=== PATIENT | male | born 1975 | race Caucasian/White ===

== ENCOUNTER 2016-09-20 06:58 | Day surgery (SDC) | payer BC ==
[~2016-09-20 06:58] MED LIST: Lactated Ringers 1,000 ML IV SCH
[2016-09-20] MEDS ORDERED: Propofol 200 MG/20 ML SDV ONE (07:15)
[2016-09-20] MEDS ORDERED: fentaNYL 100 MCG/2 ML SDV ONE (07:15)
[2016-09-20] MEDS ORDERED: Midazolam 1 MG/ML 2 ML SDV ONE (07:15)
[2016-09-20] MEDS ORDERED: Ketorolac 30 MG/ML SDV ONE (07:16)
[2016-09-20] MEDS ORDERED: diphenhydrAMINE 50 MG/ML SDV ONE (07:16)
[2016-09-20] MEDS ORDERED: Ondansetron 4 MG/2 ML SDV ONE (07:16)
[2016-09-20] MEDS ORDERED: Lidocaine 2% 5 ML SDV ONE (07:16)
[2016-09-20] MEDS ORDERED: ceFAZolin 1 GM Vial ONE (07:19)
[2016-09-20] MEDS ORDERED: Bupivacaine 0.25% 10 ML SDV ONE (07:25)
[2016-09-20] MEDS ORDERED: Bupivacaine 0.25%/EPINEPHrine 1:200,000 10 ML SDV ONE (07:25)
--- NOTE | 2016-09-20 07:43 | PCM.PREANE ---
Preanesthetic Assessment - Anesthesia/Transfusion/Family Hx Anesthesia History: Prior Anesthesia Without Reaction Family History of Anesthesia Reaction: No Transfusion History: No Prior Transfusion(s) Intubation History: Unknown - Review of Systems General: No Symptoms Pulmonary: Other (smoker) Cardiovascular: No Symptoms Gastrointestinal: No symptoms Neurological: Other (left elbow swelling and pain) Other: Reports: None - Physical Assessment O2 Sat by Pulse Oximetry: 98 Respiratory Rate: 16 Vital Signs: Last Vital Signs Temp 97.5 F 09/20/16 07:17 Pulse 78 09/20/16 07:17 Resp 16 09/20/16 07:17 BP 118/81 09/20/16 07:17 Pulse Ox 98 09/20/16 07:17 Height: 6 ft 2 in Weight: 220 lb ASA Class: 2 Mental Status: Alert & Oriented x3 Airway Class: Mallampati = 1 Dentition: Reports: Normal Dentition Thyro-Mental Finger Breadths: 3 Mouth Opening Finger Breadths: 3 (full bailey) ROM/Head Extension: Full Lungs: Clear to auscultation, Normal respiratory effort Cardiovascular: Regular Rate, Regular Rhythm, No Murmurs - Allergies Allergies/Adverse Reactions: Allergies Allergy/AdvReac Type Severity Reaction Status Date / Time morphine Allergy Itching Verified 07/04/16 09:06 oxycodone Allergy Lightheaded Verified 07/04/16 09:06 ness - Blood Blood Available: No Product(s) Available: None - Acknowledgements Anesthesia Type Planned: General Anesthesia (LMA vs OET) Pt an Appropriate Candidate for the Planned Anesthesia: Yes Alternatives and Risks of Anesthesia Discussed w Pt/Guardian: Yes Pt/Guardian Understands and Agrees with Anesthesia Plan: Yes PreAnesthesia Questionnaire HEENT History: Reports: None Cardiovascular History: Reports: Other (see below) Other Cardiovascular History: edema to lower extremities Gastrointestinal History: Reports: GERD Genitourinary History: Reports: None Musculoskeletal History: Reports: Back pain, chronic, Gout - Past Surgical History Head Surgeries/Procedures: Reports: None HEENT Surgical History: Reports: Myringotomy w tube(s), Tonsillectomy GI Surgical History: Reports: Cholecystectomy, Colonoscopy, EGD Other GI Surgeries/Procedures: I&D pilonidal cyst Male Surgical History: Reports: Vasectomy Other Neurological Surgeries/Procedures: 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6 Musculoskeletal Surgical History: Reports: Shoulder surgery, Other (see below) Other Musculoskeletal Surgeries/Procedures:: elbow surgery on 2016 - SUBSTANCE USE Smoking Status *Q: Current Every Day Smoker Tobacco Use Within Last Twelve Months: Cigarettes Second Hand Smoke Exposure: No Days Per Week of Alcohol Use: 1 Number of Drinks Per Day: 2 Total Drinks Per Week: 2 Recreational Drug Use History: No - HOME MEDS Home Medications: Home Meds RABEprazole [Aciphex] 1 tab PO BID PRN 05/02/14 [History] - CURRENT (IN HOUSE) MEDS Current Meds: Current Medications Hydrocodone Bitart/Acetaminophen ([place] 325-5 Mg) 1 - 2 tab PO Q4H PRN PRN Reason: Pain Lactated Ringer's (Ringers, Lactated) 1,000 mls @ 100 mls/hr IV ASDIRECTED [facility] Last Admin: 09/20/16 07:19 Dose: 100 mls/hr Cefazolin Sodium/Dextrose 2 gm (/ Premix) 50 mls @ 100 mls/hr IV ONCALL DAGMAR Discontinued Medications Bupivacaine HCl (Sensorcaine-Mpf 0.25%) Confirm Administered Dose 10 ml .ROUTE .STK-MED ONE Stop: 09/20/16 07:26 Bupivacaine HCl/Epinephrine Bitart (Marcaine 0.25%/Epinephrine 1:200,000) Confirm Administered Dose 10 ml .ROUTE .STK-MED ONE Stop: 09/20/16 07:26 Cefazolin Sodium (Ancef) Confirm Administered Dose 2 gm .ROUTE .STK-MED ONE Stop: 09/20/16 07:20 Diphenhydramine HCl (Benadryl) Confirm Administered Dose 50 mg .ROUTE .STK-MED ONE Stop: 09/20/16 07:17 Fentanyl (Sublimaze) Confirm Administered Dose 100 mcg .ROUTE .STK-MED ONE Stop: 09/20/16 07:16 Ketorolac Tromethamine (Toradol) Confirm Administered Dose 30 mg .ROUTE .STK- MED ONE Stop: 09/20/16 07:17 Lidocaine (Xylocaine-Mpf 2%) Confirm Administered Dose 5 ml .ROUTE .STK-MED ONE Stop: 09/20/16 07:17 Midazolam HCl (Versed 1 Mg/Ml) Confirm Administered Dose 2 mg .ROUTE .STK-MED ONE Stop: 09/20/16 07:16 Ondansetron HCl (Zofran) Confirm Administered Dose 4 mg .ROUTE .STK-MED ONE Stop: 09/20/16 07:17 Propofol (Diprivan 20 Ml) Confirm Administered Dose 200 mg .ROUTE .STK-MED ONE Stop: 09/20/16 07:16 Preanesthetic Assessment - ANESTHESIA/TRANSFUSION/FAMILY HX Anesthesia/Transfusion History: No Prior Transfusion(s), Prior Anesthesia (javier , T+A, shoulder: no anesthesia issues noted) Family History of Anesthesia Reaction: No Other Intubation History Comment: no known problems - PHYSICAL ASSESSMENT O2 Sat by Pulse Oximetry: 98 RR: 16 Vital Signs: Last Vital Signs Temp 97.5 F 09/20/16 07:17 Pulse 78 09/20/16 07:17 Resp 16 09/20/16 07:17 BP 118/81 09/20/16 07:17 Pulse Ox 98 09/20/16 07:17 Height: 6 ft 2 in Weight: 220 lb - ALLERGIES Allergies/Adverse Reactions: Allergies Allergy/AdvReac Type Severity Reaction Status Date / Time morphine Allergy Itching Verified 07/04/16 09:06 oxycodone Allergy Lightheaded Verified 07/04/16 09:06 ness
[2016-09-20] MEDS ORDERED: ceFAZolin 2 GM in Premix Bag 1 BAG IV SCH (08:00)
[2016-09-20] MEDS ORDERED: fentaNYL 100 MCG/2 ML SDV IVPUSH PRN (08:21)
--- NOTE | 2016-09-20 08:58 | PCM.OPNOTE ---
- General Post-Op/Procedure Note Date of Surgery/Procedure: 09/20/16 Operative Procedure(s): Excision left olecranon bursa Post-Op Diagnosis: Left olecranon bursitis Anesthesia Technique: General LMA Primary Surgeon: Ashley Liz Production Floater: Alexis Blancas in mLs: 5 Condition: Good Free Text/Narrative:: tt=9 min #[id number]
[2016-09-20] MEDS ORDERED: Acetaminophen/HYDROcodone 325-5 MG Tab PO PRN (09:00)
--- NOTE | 2016-09-20 09:33 | PCM.POSTAN ---
POST ANESTHESIA ASSESSMENT - MENTAL STATUS Mental Status: oriented, somnolent Free Text/Narrative:: Easily aroused, but comfortable unstimulated. - VITAL SIGNS Pulse Rate: 83 SaO2: 99 Resp Rate: 12 Blood Pressure: 110/74 - RESPIRATORY Respiratory Status: respiratory rate WNL, airway patent, O2 saturation stable - CARDIOVASCULAR CV Status: pulse rate WNL, blood pressure stable - GASTROINTESTINAL GI Status: no symptoms - POST OP HYDRATION Hydration Status: adequate & stable - OBSERVATIONS Free Text/Narrative:: Discharge to floor for phase II.
--- NOTE | 2016-09-20 10:13 | OR ---
SURGEON: Ashley Liz MD DATE OF PROCEDURE: 09/20/2016 PREOPERATIVE DIAGNOSIS: Recurrent left olecranon bursitis. POSTOPERATIVE DIAGNOSIS: Recurrent left olecranon bursitis. PROCEDURE: Excision of left olecranon bursa. POULTRY HANGER: Alexis Blancas PA-C. ANESTHESIA: General. ESTIMATED BLOOD LOSS: 5 mL. TOURNIQUET TIME: 9 minutes. COMPLICATIONS: None. DVT PROPHYLAXIS: Not indicated. IMPLANTS USED: None. BRIEF HISTORY: Darren is a 41-year-old male, who developed a left olecranon bursitis which was nonresponsive to conservative treatment. He subsequently underwent excision of the left olecranon bursa. Some small calcifications were noted along the tip of the olecranon at that time which were also removed. Postoperatively, he has developed recurrent bogginess in the olecranon region. He has not had any evidence of septic olecranon bursitis. He continues to complain of pain and swelling in the elbow. Due to his lack of response to conservative treatment, I did recommend repeat surgery. The risks and goals of procedure were discussed with the patient and documented preoperatively. He agreed to proceed. DESCRIPTION OF PROCEDURE: The patient was properly identified and brought to the operating room. He was transferred from the OR cart and placed on the operating table in supine position. General anesthesia was administered. After adequate anesthesia was obtained, a well-padded tourniquet was applied to the left upper extremity. The left upper extremity was then prepped in standard fashion using ChloraPrep solution. It was then sterilely draped. A time-out was performed to ensure correct site and procedure. Preoperative antibiotics were given. The surgical site had been marked preoperatively. The tourniquet was inflated to 200 mmHg. An incision was made over the site of the previous incision. Serous fluid did drain from the bursa. The bursal tissue was then excised using a combination of electrocautery and rongeur. He had developed recurrent small calcifications over the tip of the olecranon which were also excised. An extensive bursectomy was performed. Care was taken not to extend medially to the location of the ulnar nerve. At the completion, the wound was copiously irrigated with saline solution. The tourniquet was deflated. Electrocautery was used to maintain hemostasis. The subcutaneous tissues were then closed with 3-0 Vicryl. The skin was closed with a running 3-0 nylon suture. 0.25% Marcaine with epinephrine was injected along the incision site to help with hemostasis and postoperative pain control. Xeroform gauze was then placed over the wound and a bulky dressing was applied. He was placed in a well-padded posterior splint. He was awakened from his anesthetic and transferred back to the operating room cart. He was brought to recovery room in stable condition. All needle and sponge counts were correct. HAILEY / DIVINA /[id number]
--- NOTE | 2016-09-20 10:35 | PCM48HPAN ---
Post Anesthesia Note - EVALUATION WITHIN 48HRS OF ANESTHETIC Vital Signs in Normal Range: Yes Patient Participated in Evaluation: Yes Respiratory Function Stable: Yes Airway Patent: Yes Cardiovascular Function Stable: Yes Hydration Status Stable: Yes Pain Control Satisfactory: Yes Nausea and Vomiting Control Satisfactory: Yes Mental Status Recovered: Yes - COMMENTS/OBSERVATIONS Free Text/Narrative:: Known as a deep sleeper, he is also sleepy here after the anesthetic. He is aware and will be going home soon.
[2016-09-20 10:59] VITALS: BP 122/75
== END 2016-09-20 11:00 | disposition home or self-care (01) ==
LOC: MW.SDS 06:58
PROVIDERS: ATTEND Orthopaedic Surgery
DX: M70.22 Olecranon bursitis, left elbow (principal); K21.9 Gastro-esophageal reflux disease without esophagitis; Z88.8 Allergy status to other drugs, medicaments and biological substances; Z90.49 Acquired absence of other specified parts of digestive tract; Z98.890 Other specified postprocedural states; F17.210 Nicotine dependence, cigarettes, uncomplicated; Z98.52 Vasectomy status; Z79.899 Other long term (current) drug therapy
CPT/HCPCS: 24105; A9270; J0690; J1200; J1885; J2250; J2405; J3010; J7120; 01710; 88304; J2704

== ENCOUNTER 2017-05-20 07:50 | Day surgery (SDC) | payer BC ==
[~2017-05-20 07:50] MED LIST changes: +Bupivacaine 25%/EPINEPHrine/PF 30 ML ONE; +Lidocaine 2% 5 ML SDV ONE; +Midazolam 1 MG/ML 2 ML SDV ONE; +Octyl 2-Cyanoacrylate 1 Tube ONE; +Propofol 200 MG/20 ML SDV ONE; +ceFAZolin 2 GM in Premix Bag 1 BAG IV ONE; +fentaNYL 100 MCG/2 ML SDV ONE
--- NOTE | 2017-05-20 08:57 | PCM.PREANE ---
Preanesthetic Assessment - Anesthesia/Transfusion/Family Hx Anesthesia History: Prior Anesthesia Without Reaction Family History of Anesthesia Reaction: No Transfusion History: No Prior Transfusion(s) Intubation History: Unknown - Review of Systems General: No Symptoms Pulmonary: No Symptoms Cardiovascular: No Symptoms Gastrointestinal: No Symptoms Neurological: No Symptoms Other: Reports: None - Physical Assessment NPO Status Date: 05/19/17 O2 Sat by Pulse Oximetry: 99 Respiratory Rate: 16 Vital Signs: Last Vital Signs Temp 36.5 C 05/20/17 08:15 Pulse 99 05/20/17 08:15 Resp 16 05/20/17 08:15 BP 109/67 05/20/17 08:15 Pulse Ox 99 05/20/17 08:15 ASA Class: 2 Mental Status: Alert & Oriented x3 Airway Class: Mallampati = 2 Dentition: Reports: Normal Dentition ROM/Head Extension: Full Lungs: Clear to Auscultation, Normal Respiratory Effort Cardiovascular: Regular Rate, Regular Rhythm - Allergies Allergies/Adverse Reactions: Allergies Allergy/AdvReac Type Severity Reaction Status Date / Time morphine Allergy Itching Verified 07/04/16 09:06 oxycodone Allergy Lightheaded Verified 07/04/16 09:06 ness - Anesthesia Plan Pre-Op Medication Ordered: None - Acknowledgements Anesthesia Type Planned: General Anesthesia, MAC Pt an Appropriate Candidate for the Planned Anesthesia: Yes Alternatives and Risks of Anesthesia Discussed w Pt/Guardian: Yes Pt/Guardian Understands and Agrees with Anesthesia Plan: Yes Additional Comments: pmh: gerd, gout, smoker PreAnesthesia Questionnaire HEENT History: Other HEENT History: wears glasses Cardiovascular History: Reports: Other (See Below) Other Cardiovascular History: edema to lower extremities Gastrointestinal History: Reports: GERD Genitourinary History: Reports: None Musculoskeletal History: Reports: Back Pain, Chronic, Gout Neurological History: Reports: None - Past Surgical History Head Surgeries/Procedures: Reports: None HEENT Surgical History: Reports: Myringotomy w Tube(s), Tonsillectomy GI Surgical History: Reports: Cholecystectomy, Colonoscopy, EGD Other GI Surgeries/Procedures: I&D pilonidal cyst Male Surgical History: Reports: Vasectomy Other Neurological Surgeries/Procedures: 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6 Musculoskeletal Surgical History: Reports: Shoulder Surgery, Other (See Below) Other Musculoskeletal Surgeries/Procedures:: elbow surgery on 2016 - SUBSTANCE USE Smoking Status *Q: Current Every Day Smoker Tobacco Use Within Last Twelve Months: Other (See Below) Second Hand Smoke Exposure: No Days Per Week of Alcohol Use: 1 Number of Drinks Per Day: 2 Total Drinks Per Week: 2 Recreational Drug Use History: No - HOME MEDS Home Medications: Home Meds RABEprazole [Aciphex] 1 tab PO BID PRN 05/02/14 [History] - CURRENT (IN HOUSE) MEDS Current Meds: Current Medications Lactated Ringer's (Ringers, Lactated) 1,000 mls @ 125 mls/hr IV ASDIRECTED DAGMAR Discontinued Medications Fentanyl (Sublimaze) Confirm Administered Dose 100 mcg .ROUTE .STK-MED ONE Stop: 05/20/17 07:23 Cefazolin Sodium/Dextrose 2 gm (/ Premix) 50 mls @ 100 mls/hr IV ONETIME ONE Stop: 05/20/17 05:29 Bupivacaine HCl/Epinephrine Bitart (Sensorc Mpf 0.25%-Epi 1:[id number]) Confirm Administered Dose 30 mls @ as directed .ROUTE .STK-MED ONE Stop: 05/20/17 07:44 Lidocaine (Xylocaine-Mpf 2%) Confirm Administered Dose 5 ml .ROUTE .STK-MED ONE Stop: 05/20/17 07:24 Midazolam HCl (Versed 1 Mg/Ml) Confirm Administered Dose 2 mg .ROUTE .STK-MED ONE Stop: 05/20/17 07:23 Octyl Cyanoacrylate (Dermabond Advance) Confirm Administered Dose 1 applic .ROUTE .STK-MED ONE Stop: 05/20/17 07:47 Propofol (Diprivan 20 Ml) Confirm Administered Dose 200 mg .ROUTE .STK-MED ONE Stop: 05/20/17 07:23
[2017-05-20] MEDS ORDERED: Acetaminophen/HYDROcodone 325-5 MG Tab PO ONE (09:34)
[2017-05-20] MEDS ORDERED: Midazolam 1 MG/ML 2 ML SDV ONE (09:43)
[2017-05-20] MEDS ORDERED: ceFAZolin 1 GM Vial ONE (09:46)
[2017-05-20] MEDS ORDERED: Lidocaine 1% with EPINEPHrine 1:100,000 20 ML MDV ONE (09:48)
[2017-05-20] MEDS ORDERED: Flumazenil 0.1 MG/ML 5 ML MDV ONE (10:09)
--- NOTE | 2017-05-20 10:29 | PCM.OPNOTE ---
- General Post-Op/Procedure Note Date of Surgery/Procedure: 05/20/17 Operative Procedure(s): head mass excisional bx Findings: found a whitish color, round object, like a anel, 4 mm diameter, excised w skin en bloc; [id number] Pre Op Diagnosis: head mass Post-Op Diagnosis: Same Anesthesia Technique: General Mask, Local Primary Surgeon: Dennis Naranjo Pathology: sent Complications: None Condition: Good
--- NOTE | 2017-05-20 11:15 | OR ---
SURGEON: Dennis Naranjo MD DATE OF PROCEDURE: 05/20/2017 PREOPERATIVE DIAGNOSIS: Head mass. POSTOPERATIVE DIAGNOSIS: Head mass. PROCEDURE PERFORMED: Excision and biopsy. COMPLICATIONS: None. FINDINGS: Like a foreign object, a whitish color, and solid like a anel 4 mm in diameter, incision 3.1 cm excised en bloc with skin on top and sent for pathology. PROCEDURE IN DETAIL: The patient was taken to the operating room, placed in the supine position, and mild general sedation was given, and a time-out was then called. The patient was identified, procedure identified, antibiotic given. Procedure then started. The patient was prepped and draped in the head area, which has been shaved, which was on top of the head. Using a skin scalpel, a fish-mouth incision was made, and exposed like a foreign object like a anel 4 mm in diameter and skin on top was excised and sent for pathology. skin incision 3.1cm. Good hemostasis was achieved by using electrocautery. The wound was closed with 3-0 Ethilon, running baseball stitches, and followed with bacitracin cream. The patient was then awakened and transported to recovery room in hemodynamically stable condition. The patient tolerated the procedure well. There were no intraoperative complications. Dr. Naranjo present for the whole procedure. As always, thank you for the kind referral. PRIMARY SURGEON: SECONDARY SURGEON: REGIONAL ACCOUNT DIRECTOR: REASON REGIONAL ACCOUNT DIRECTOR WAS NECESSARY: ROLE OF REGIONAL ACCOUNT DIRECTOR: DMITRIY / DIVINA /[id number] MTDD
[2017-05-20] MEDS ORDERED: Ketorolac 30 MG/ML SDV IVPUSH ONE (11:34)
--- NOTE | 2017-05-20 11:35 | PCM48HPAN ---
Post Anesthesia Note - EVALUATION WITHIN 48HRS OF ANESTHETIC Vital Signs in Normal Range: Yes Patient Participated in Evaluation: Yes Respiratory Function Stable: Yes Airway Patent: Yes Cardiovascular Function Stable: Yes Hydration Status Stable: Yes Pain Control Satisfactory: Yes Nausea and Vomiting Control Satisfactory: Yes Mental Status Recovered: Yes
--- NOTE | 2017-05-20 11:36 | PCM.POSTAN ---
POST ANESTHESIA ASSESSMENT - MENTAL STATUS Mental Status: Alert, Oriented - RESPIRATORY Respiratory Status: Respiratory Rate WNL, Airway Patent, O2 Saturation Stable - CARDIOVASCULAR CV Status: Pulse Rate WNL, Blood Pressure Stable - GASTROINTESTINAL GI Status: No Symptoms - PAIN Free Text/Narrative:: co sharp R ant chest pain, nl breath sounds, no splinting, will rx toradol - POST OP HYDRATION Hydration Status: Adequate & Stable
[2017-05-20 14:55] VITALS: BP 117/56
== END 2017-05-20 12:00 | disposition home or self-care (01) ==
LOC: MW.SDS 07:50
PROVIDERS: ATTEND Surgery
DX: R22.0 Localized swelling, mass and lump, head (principal); K21.9 Gastro-esophageal reflux disease without esophagitis; G89.29 Other chronic pain; M54.9 Dorsalgia, unspecified; F17.210 Nicotine dependence, cigarettes, uncomplicated; E79.0 Hyperuricemia without signs of inflammatory arthritis and tophaceous disease; L72.11 Pilar cyst; Z88.5 Allergy status to narcotic agent; Z98.890 Other specified postprocedural states; Z96.22 Myringotomy tube(s) status; Z79.899 Other long term (current) drug therapy
CPT/HCPCS: 11424; J0690; J1885; J2250; 00300; 88304; A9270-GY; J2704; J3010

== ENCOUNTER 2020-10-12 05:06 | Emergency (ER) | payer BC ==
[2020-10-12] MEDS ORDERED: Diphtheria,Pertussis(Acell),Tetanus Vaccine 0.5 ML Syringe IM ONE (05:28)
[2020-10-12] MEDS ORDERED: Cephalexin 500 MG Cap PO ONE (05:30)
[2020-10-12] MEDS ORDERED: Cephalexin 500 MG Cap ONE (05:31)
--- NOTE | 2020-10-12 05:34 | EDM.PDOC ---
ED HPI GENERAL MEDICAL PROBLEM - General Chief Complaint: Laceration Stated Complaint: HEAD INJURY Time Seen by Provider: 10/12/20 05:23 - History of Present Illness INITIAL COMMENTS - FREE TEXT/NARRATIVE: HISTORY AND PHYSICAL: History of present illness: This a 45-year-old gentleman with no significant past medical history presents ER today secondary to laceration to his scalp that occurred approximately 10:30 PM last night. Patient reports while at work he walked into a corner and hit his scalp resulting in the laceration. Patient denies any LOC. Patient denies any nausea or vomiting. Patient denies any confusion or alteration in his mentation. Patient denies any recent fevers, shakes, chills, nausea, vomiting, diarrhea, dysuria, frequency, urgency. Patient is Td is greater than 5 years. Review of systems: As per history of present illness and below otherwise all systems reviewed and negative. Past medical history: As per history of present illness and as reviewed below otherwise noncontributory. Surgical history: As per history of present illness and as reviewed below otherwise noncontributory. Social history: No reported history of drug or alcohol abuse. Family history: As per history of present illness and as reviewed below otherwise noncontributory. Physical exam: This patient was seen and evaluated during the 2019 SARS-CoV-2 novel coronavirus pandemic period. Community viral transmission is ongoing at time of this encounter and the emergency department is operating under pandemic response procedures. Constitutional: Patient is oriented to person, place, and time. Appears well- developed and well-nourished. No distress. HEENT: Moist mucous membranes Head: Normocephalic and atraumatic Eyes: Right eye exhibits no discharge. Left eye exhibits no discharge. No scleral icterus Neck: Normal range of motion. No tracheal deviation present. Cardiovascular: Normal rate and regular rhythm. Pulmonary: Effort normal, no respiratory distress. Abdominal: No distention Musculoskeletal: Normal range of motion Neurologic: Alert and oriented to person, place and time. Skin: [place], warm and dry. Psychiatric: Normal mood and affect. Behavior is normal. Judgment and thought content normal. Nursing note and vital signs have been reviewed Patient's ER physical exam is significant for a 3 cm laceration to his scalp. [place] is intact. Patient has no C-spine or T-spine tenderness to palpation. Therapeutics: Tdap 0.5 IM Babar x3 to the scalp. Wound irrigated by business operations director and plan: 45-year-old gentleman who presents ER today with a scalp laceration. Patient has no LOC, nausea, vomiting, confusion. Patient is low risk for concussion or intracranial pathology. Patient was stapled in the ED was instructed to have his babar removed and 10 days. Patient was given Tdap 0.5 IM as well as Keflex. Reassessment at the time of disposition demonstrates that the patient is in no acute distress. The patient has remained stable throughout the entire ED visit and is without objective evidence for acute process requiring urgent intervention or hospitalization. The patient is stable for discharge, counseling is provided as documented above, discussed symptomatic treatment and specific conditions for return. I have spoken with the patient/caregiver and discussed todays findings, in addition to providing specific details for the plan of care. Questions are answered and there is agreement with the plan. Definitive disposition and diagnosis as appropriate pending reevaluation and review of above. Head Pain Score (Numeric/FACES): 2 - Related Data Allergies Allergy/AdvReac Type Severity Reaction Status Date / Time morphine Allergy Itching Verified 10/12/20 05:16 oxycodone Allergy Lightheaded Verified 10/12/20 05:16 ness Home Meds: Home Meds . [No Known Home Meds] 10/12/20 [History] Past Medical History - Past Health History Medical/Surgical History: Denies Medical/Surgical History HEENT History: Other HEENT History: wears glasses Cardiovascular History: Reports: Other (See Below) Other Cardiovascular History: edema to lower extremities Gastrointestinal History: Reports: GERD Genitourinary History: Reports: None Musculoskeletal History: Reports: Back Pain, Chronic, Gout Neurological History: Reports: None - Infectious Disease History Infectious Disease History: Reports: Chicken Pox - Past Surgical History Head Surgeries/Procedures: Reports: None HEENT Surgical History: Reports: Myringotomy w Tube(s), Tonsillectomy GI Surgical History: Reports: Cholecystectomy, Colonoscopy, EGD Other GI Surgeries/Procedures: I&D pilonidal cyst Male Surgical History: Reports: Vasectomy Other Neurological Surgeries/Procedures: 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6 Musculoskeletal Surgical History: Reports: Shoulder Surgery, Other (See Below) Other Musculoskeletal Surgeries/Procedures:: elbow surgery on 2016 Social & Family History - Family History Family Medical History: No Pertinent Family History - Caffeine Use Caffeine Use: Reports: Coffee - Recreational Drug Use Recreational Drug Use: No ED ROS GENERAL - Review of Systems Review Of Systems: See Below ED EXAM, SKIN/RASH Exam: See Below ED SKIN PROCEDURES - Laceration/Wound Repair Head Appearance: Irregular Distal NVT: Neuro & Vascular Intact Closed with: [place] Lac/Wound length In cm: 3 # of Sutures: 3 Drain Placement: No Sterile Dressing Applied: Nurse Tetanus Status Addressed: Yes Complications: No Course - Vital Signs Last Recorded V/S: Last Vital Signs Temp 97.3 F 10/12/20 05:16 Pulse 100 10/12/20 05:16 Resp 16 10/12/20 05:16 BP 129/81 10/12/20 05:16 Pulse Ox 99 10/12/20 05:16 Departure - Departure Time of Disposition: 05:42 Disposition: Home, Self-Care 01 Condition: Good Clinical Impression: Scalp laceration Qualifiers: Encounter type: initial encounter Qualified Code(s): S01.01XA - Laceration without foreign body of scalp, initial encounter - Discharge Information Instructions: Sutures, Babar, or Adhesive Wound Closure, [id number] Referrals: Albina Eckert MD [Primary Care Provider] - Additional Instructions: You were seen and evaluated in the ER today secondary to a laceration to your scalp. 3 babar been placed. You should have a wound check in 2 days by your primary care physician and should have your babar removed in approximately 10 days. He will be given a prescription for Keflex to help with preventing infection. He can take ibuprofen and Tylenol as needed for pain. The following information is given to patients seen in the emergency department who are being discharged to home. This information is to outline your options for follow-up care. We provide all patients seen in our emergency department with a follow-up referral. The need for follow-up, as well as the timing and circumstances, are variable depending upon the specifics of your emergency department visit. If you don't have a primary care physician on staff, we will provide you with a referral. We always advise you to contact your personal physician following an emergency department visit to inform them of the circumstance of the visit and for follow-up with them and/or the need for any referrals to a consulting specialist. The emergency department will also refer you to a specialist when appropriate. This referral assures that you have the opportunity for follow-up care with a specialist. All of these measure are taken in an effort to provide you with optimal care, which includes your follow-up. Under all circumstances we always encourage you to contact your private physician who remains a resource for coordinating your care. When calling for follow-up care, please make the office aware that this follow-up is from your recent emergency room visit. If for any reason you are refused follow-up, please contact the [facility] Emergency Department at and asked to speak to the emergency department charge nurse. [facility] [address] [place] [id number] [facility] [address] [place] [id number] Sepsis Event Note (ED) - Evaluation Sepsis Screening Result: No Definite Risk - Focused Exam Vital Signs: Vital Signs Temp Pulse Resp BP Pulse Ox 10/12/20 05:16 97.3 F 100 16 129/81 99
[2020-10-12 05:57] VITALS: BP 120/73; PULSE 90
== END 2020-10-12 05:57 | disposition home or self-care (01) ==
LOC: MW.ED 05:06
DX: S01.01XA Laceration without foreign body of scalp, initial encounter (principal); Z23 Encounter for immunization; Z88.6 Allergy status to analgesic agent; Z88.5 Allergy status to narcotic agent; W22.8XXA Striking against or struck by other objects, initial encounter; Y99.0 Civilian activity done for income or pay
CPT/HCPCS: 12002; 90471; 90715; 99282; A9270; 99283

== ENCOUNTER 2020-10-23 11:07 | Emergency (ER) | payer BC | END 2020-10-23 11:21 | disposition left against medical advice (07) | LOC: MW.ED 11:07 | DX: Z48.02 Encounter for removal of sutures (principal) | CPT/HCPCS: 99281 ==

== ENCOUNTER 2021-07-15 17:24 | Emergency (ER) | payer BC ==
[2021-07-15 17:35] VITALS: BP 113/75; PULSE 93
== END 2021-07-15 21:15 | disposition home or self-care (01) ==
LOC: MW.ED 17:24
DX: S69.91XA Unspecified injury of right wrist, hand and finger(s), initial encounter (principal); Z88.5 Allergy status to narcotic agent; X50.1XXA Overexertion from prolonged static or awkward postures, initial encounter
CPT/HCPCS: 73130-26-RT; 73130-RT; 99283

== ENCOUNTER 2024-01-04 22:46 | Emergency (ER) | payer BC ==
[2024-01-04] MEDS: Sodium Chloride 0.9% 1,000 ML IV ONE (23:15)
[2024-01-04] MEDS: Metoclopramide 10 MG/2 ML SDV IVPUSH ONE (23:16)
[2024-01-04] MEDS: Ketorolac 30 MG/ML SDV IVPUSH ONE (23:16)
[2024-01-04] MEDS: Sodium Chloride 0.9% 10 ML Syringe FLUSH PRN (23:16)
[2024-01-04] MEDS: diphenhydrAMINE 50 MG/ML SDV IVPUSH ONE (23:16)
[2024-01-04 23:17] LABS: HEMATOCRIT 46.5 % (42.0-52.0); HEMOGLOBIN 15.4 g/dL (14.0-18.0); MEAN CORPUSCULAR HGB CONC 33.1 g/dL (32.0-36.0); MEAN CORPUSCULAR VOLUME 90.6 fL (83.0-99.0); MEAN PLATELET VOLUME 10.6 fL (9.4-12.4); PLATELET COUNT,PLT 245 K/uL (150-400); RED BLOOD CELL COUNT 5.13 M/uL (4.52-5.90); WHITE BLOOD CELL COUNT,WBC 12.35 K/uL (3.9-11.3)
[2024-01-04] MEDS: Sodium Chloride 0.9% 2.5 ML Syringe FLUSH PRN (23:17)
[2024-01-04] MEDS: Dexamethasone 4 MG/ML SDV IVPUSH ONE (23:17)
[2024-01-04 23:34] LABS: A/G RATIO 0.9 (0.9-1.6); ALBUMIN 3.5 g/dL (3.4-5.0); BILIRUBIN TOTAL 1.3 mg/dL (0.2-1.0); CALCIUM 8.6 mg/dL (8.5-10.1); CARBON DIOXIDE,CO2 28.2 mmol/L (21.0-32.0); CREATININE 1.1 mg/dL (0.8-1.3); EST CRCL DRUG DOSING (CG) 97.56 mL/min; POTASSIUM,K 3.6 mmol/L (3.5-5.1); PROTEIN TOTAL,TP 7.5 g/dL (6.4-8.2)
[2024-01-04 23:46] LABS: LYMPHOCYTES ABSOLUTE MAN 1.24 K/uL (1.00-4.80); LYMPHOCYTES PERCENT MAN 10 % (24-44); SEG NEUTROPHILS ABSOLUTE MAN 9.63 K/uL (1.80-7.70); SEG NEUTROPHILS PERCENT MAN 78 % (41-71)
[2024-01-04 23:47] LABS: EOSINOPHILS ABSOLUTE MAN 0.12 K/uL (0.00-0.45); EOSINOPHILS PERCENT MAN 1 % (0-6); MONOCYTES ABSOLUTE MAN 1.36 K/uL (0.00-0.80); MONOCYTES PERCENT MAN 11 % (0-8)
[2024-01-04] MEDS: Iopamidol 755 MG/ML 500 ML Multipack Bottle IVPUSH ONE (23:53)
[2024-01-05] MEDS: Lidocaine 1% 5 ML VIAL INJECT ONE ×2 (01:19→01:58)
[2024-01-05] MEDS: Sodium Chloride 0.9% 1,000 ML IV STA (02:04)
[2024-01-05] MEDS: HYDROmorphone 1 MG/ML Syringe IVPUSH ONE (02:29)
[2024-01-05 04:12] LABS: APPEARANCE CSF CLEAR; COLOR,CSF COLORLESS; RBC,CSF 330 /uL (0-0); WBC,CSF 0 /uL (0-5)
[2024-01-05 04:14] LABS: APPEARANCE CSF CLEAR; COLOR,CSF COLORLESS; WBC,CSF 0 /uL (0-5)
[2024-01-05 04:15] LABS: RBC,CSF 22 /uL (0-0)
[2024-01-05 04:37] VITALS: BP 109/65; PULSE 84
== END 2024-01-05 04:36 | disposition home or self-care (01) ==
LOC: MW.ED 22:46
DX: R51.9 Headache, unspecified (principal); Z90.49 Acquired absence of other specified parts of digestive tract; Z88.5 Allergy status to narcotic agent; Z88.6 Allergy status to analgesic agent; Z75.8 Other problems related to medical facilities and other health care
CPT/HCPCS: 36415; 62270; 70496; 80053; 82945; 84157; 85025; 86308; 86788; 87070; 87205; 89050; 96361; 96374; 96375; 99284; J1100; J1170; J1200; J1885; J2765; J3490; J7030; Q9967

== ENCOUNTER 2024-01-07 16:48 | Emergency (ER) | payer BC ==
[2024-01-07 17:51] LABS: HEMATOCRIT 42.7 % (42.0-52.0); HEMOGLOBIN 14.4 g/dL (14.0-18.0); MEAN CORPUSCULAR HEMOGLOBIN 30.3 pg (28.0-32.0); MEAN CORPUSCULAR HGB CONC 33.7 g/dL (32.0-36.0); MEAN CORPUSCULAR VOLUME 89.9 fL (83.0-99.0); MEAN PLATELET VOLUME 10.5 fL (9.4-12.4); PLATELET COUNT,PLT 261 K/uL (150-400); RED BLOOD CELL COUNT 4.75 M/uL (4.52-5.90); WHITE BLOOD CELL COUNT,WBC 10.43 K/uL (3.9-11.3)
[2024-01-07] MEDS: Sodium Chloride 0.9% 1,000 ML IV STA (17:55)
[2024-01-07] MEDS: Magnesium Sulfate/Water 2 GM in Premix Bag 1 BAG IV STA (17:56)
[2024-01-07] MEDS: diphenhydrAMINE 50 MG/ML SDV IVPUSH STA (17:56)
[2024-01-07] MEDS: Metoclopramide 10 MG/2 ML SDV IVPUSH STA (17:56)
[2024-01-07 18:06] LABS: ALBUMIN 3.5 g/dL (3.4-5.0); BILIRUBIN TOTAL 1.5 mg/dL (0.2-1.0); CALCIUM 8.5 mg/dL (8.5-10.1); CARBON DIOXIDE,CO2 28.1 mmol/L (21.0-32.0); CREATININE 0.9 mg/dL (0.8-1.3); EST CRCL DRUG DOSING (CG) 119.24 mL/min; POTASSIUM,K 3.4 mmol/L (3.5-5.1); PROTEIN TOTAL,TP 7.1 g/dL (6.4-8.2)
[2024-01-07 18:50] LABS: CORONAVIRUS COVID-19 NAA POSITIVE (NEGATIVE); INFLUENZA A NAA NEGATIVE (NEGATIVE); INFLUENZA B NAA NEGATIVE (NEGATIVE)
[2024-01-07 19:07] LABS: BAND PERCENT MAN 1 %; BASOPHILS PERCENT MAN 0 % (0-1); EOSINOPHILS ABSOLUTE MAN 0.31 K/uL (0.00-0.45); EOSINOPHILS PERCENT MAN 3 % (0-6); LYMPHOCYTES ABSOLUTE MAN 2.82 K/uL (1.00-4.80); LYMPHOCYTES PERCENT MAN 27 % (24-44); MONOCYTES ABSOLUTE MAN 0.52 K/uL (0.00-0.80); MONOCYTES PERCENT MAN 5 % (0-8); SEG NEUTROPHILS ABSOLUTE MAN 6.68 K/uL (1.80-7.70); SEG NEUTROPHILS PERCENT MAN 64 % (41-71)
[2024-01-07 19:29] VITALS: BP 108/75; PULSE 90
== END 2024-01-07 19:16 | disposition home or self-care (01) ==
LOC: MW.ED 16:48
DX: U07.1 COVID-19 (principal); Z75.8 Other problems related to medical facilities and other health care; Z90.49 Acquired absence of other specified parts of digestive tract; Z88.5 Allergy status to narcotic agent
CPT/HCPCS: 0240U; 36415; 80053; 85007; 85027; 96365; 96375; 99284; J1200; J2765; J3475; J7030

== ENCOUNTER 2024-01-26 19:37 | Emergency (ER) | payer BC ==
[2024-01-26] MEDS: predniSONE 10 MG Tab PO ONE (20:13)
[2024-01-26 20:33] VITALS: BP 130/80; PULSE 92
== END 2024-01-26 20:31 | disposition home or self-care (01) ==
LOC: MW.ED 19:37
DX: R21 Rash and other nonspecific skin eruption (principal); Z90.49 Acquired absence of other specified parts of digestive tract; Z88.5 Allergy status to narcotic agent
CPT/HCPCS: 99282; A9270; 99283

== ENCOUNTER 2025-01-03 16:54 | Emergency (ER) | payer BC ==
[2025-01-03] MEDS: Ketorolac 30 MG/ML SDV IM ONE (17:32)
[2025-01-03 18:26] VITALS: BP 107/85; PULSE 80
== END 2025-01-03 18:26 | disposition home or self-care (01) ==
LOC: MW.ED 16:54
DX: S80.12XA Contusion of left lower leg, initial encounter (principal); Z88.5 Allergy status to narcotic agent; X58.XXXA Exposure to other specified factors, initial encounter
CPT/HCPCS: 73590; 96372; 99283; J1885; 99282